=== PATIENT | female | born 1985 | race Caucasian/White ===

== ENCOUNTER 2017-07-03 03:59 | Emergency (ER) | payer SELFPAY ==
[2017-07-03 04:06] VITALS: BP 107/68
[2017-07-03] MEDS ORDERED: LIDOCAINE 1% INJ-PF (10 MG/ML) 30 ML SDV INJ ONE (04:22)
[2017-07-03] MEDS ORDERED: DIPH/PERTUSS(ACELL)/TETANUS VAC/PF 0.5 ML SYR (>=10YO) IM ONE (04:26)
[2017-07-03] MEDS ORDERED: CEPHALEXIN 500 MG CAPSULE PO ONE (04:26)
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
== END 2017-07-03 05:38 | disposition home or self-care (01) ==
LOC: ER 03:59
PROC: 0HQ1XZZ Repair Face Skin, External Approach (ICD-10-PCS; principal; 2017-07-03)
DX: S01.21XA Laceration without foreign body of nose, initial encounter (principal); S10.93XA Contusion of unspecified part of neck, initial encounter; S20.219A Contusion of unspecified front wall of thorax, initial encounter; S10.91XA Abrasion of unspecified part of neck, initial encounter; S20.319A Abrasion of unspecified front wall of thorax, initial encounter; Y04.8XXA Assault by other bodily force, initial encounter
CPT/HCPCS: 99284; 90471; 70450; 70486; 71250; 72125; 90715; 12052; L0120; J3490